=== PATIENT | male | born 1995 | race African-American/Black ===

== ENCOUNTER 2024-11-19 19:47 | Emergency (ER) | payer BC, SELFPAY ==
--- NOTE | ~2024-11-19 | US_ITS ---
EXAMINATION: US scrotum doppler DATE: 11/19/2024 21:15 INDICATION: Renal testicular pain, right greater than left TECHNIQUE: Testicular sonogram utilizing grayscale and Doppler COMPARISON: None. FINDINGS: The right testis measures 4.7 x 2.3 x 2.1 cm. The left testis measures 4.4 x 2.8 x 2.5 cm. Symmetric normal grayscale appearance to both testes. The right epididymis appears mildly enlarged and slightly hypoechoic relative to the left epididymis. There is also asymmetric increased vascular flow in the right epididymis when compared with the left consistent with epididymitis. There are several increase d vascular flow on the right testis relative to the left on color Doppler along the grayscale appeara nce appears normal and the collateral exclude a mild early right orchitis. There is no varicocele or hydrocele. There is also some edema or thickening and mild hyperemia of the right scrotal wall which likely reactive. The subcutaneous sutures at the lateral aspect right scrotum there is a 2.4 x 1.6 x 0.8 cm hypoechoic lesion with interval but with symmetric hyperechoic region with appearance suggesti ng possible fatty hilum of a reactive right inguinal lymph node. IMPRESSION: 1. Findings consistent with right sided epididymitis and early orchitis with likely reactive right i nguinal lymph node. Reviewed, dictated and finalized at location A. IMPRESSION: 1. Findings consistent with right sided epididymitis and early orchitis with l ikely reactive right inguinal lymph node.
[2024-11-19 19:52] VITALS: BP 134/82; PULSE 102; RESP 16; TEMP 36.7; O2SAT 99
[2024-11-19 19:54] VITALS: BP 135/87; PULSE 102; RESP 12; TEMP 36.6; O2SAT 98
--- NOTE | 2024-11-19 20:20 | ED_ITS ---
HPI - Male Genitourinary General Chief complaint: Urogenital-Male Stated complaint: R/O TESTICULAR TORSION; HIGH BS Time Seen by Provider: 11/19/24 20:07 History of Present Illness HPI Narrative: 29-year-old male with a past medical history including insulin-dependent diabetes presenting to the emergency room with right-sided testicular pain and swelling for last several days. He has noticed that he has had pain and swelling in that right side that is worsened over last few days and does have some associated dysuria without any discharge. Also states that he has had changing ejaculations recently and decreased output for last month. Notices the skin on the right side of his testicle is now indurated and hard to the touch. He went to [facility] where they transferred him to our hospital for ultrasound. He received morphine and route and was noted to be elevated blood sugars of 570 but states that he has not had insulin for last 2 days given the cost. No chest pain, shortness a breath, abdominal pain, fever, chills, nausea, vomiting. No present concerns for STI. Is uncircumcised and states that he thinks he might have gotten an infection of some sort. Related Data Allergies Allergy/AdvReac Type Severity Reaction Status Date / Time No Known Allergies Allergy Verified 11/19/24 22:50 Review of Systems 2 Review of Systems: As reviewed above in HPI Exam 2 Narrative: GENERAL: [Well-appearing, well-nourished, and in no acute distress.] HEAD: [Normocephalic, atraumatic.] EYES: [PERRLA and EOMI.] ENT: Nares clear, no rhinorrhea or epistaxis. Mucous membranes moist. NECK: Supple. CHEST: [Clear to auscultation. No respiratory distress.] HEART: [Regular rate and rhythm]. No murmur heard. [Normal peripheral pulses.] ABDOMEN: [Soft, nondistended], [nontender], [No rigidity or guarding] : Chaperoned examination reveals right-sided testicular and epididymal tenderness and swelling with scrotal induration on the lateral aspect of the right side, no inguinal lymphadenopathy or masses, no penile tenderness or discharge EXTREMITIES: Normal range of motion. [No edema.] SKIN: Warm, dry, no rash. NEURO: [No focal deficits]. Alert and oriented [x3.] PSYCH: [Normal mood and affect.] Course Vital Signs Vital signs: Vital Signs Temperature 36.7 C 11/19/24 19:52 Pulse Rate 102 H 11/19/24 19:52 Respiratory Rate 16 11/19/24 19:52 Blood Pressure 134/82 11/19/24 19:52 Pulse Oximetry 99 11/19/24 19:52 Oxygen Delivery Room Air 11/19/24 19:52 Temperature 36.7 C 11/19/24 22:31 Pulse Rate 97 11/19/24 22:57 Respiratory Rate 14 11/19/24 22:57 Blood Pressure 127/92 H 11/19/24 22:57 Pulse Oximetry 100 11/19/24 22:57 Oxygen Delivery Room Air 11/19/24 19:52 MDM - Male Genitourinary MDM Narrative Medical decision making narrative: 29-year-old male with a past medical history including insulin-dependent diabetes presenting to the emergency room with right-sided testicular pain and swelling for last several days. He has noticed that he has had pain and swelling in that right side that is worsened over last few days and does have some associated dysuria without any discharge. Also states that he has had changing ejaculations recently and decreased output for last month. Notices the skin on the right side of his testicle is now indurated and hard to the touch. He went to [facility] where they transferred him to our hospital for ultrasound. He received morphine and route and was noted to be elevated blood sugars of 570 but states that he has not had insulin for last 2 days given the cost. No chest pain, shortness a breath, abdominal pain, fever, chills, nausea, vomiting. No present concerns for STI. Is uncircumcised and states that he thinks he might have gotten an infection of some sort. Examination shows right-sided testicular and epididymal tenderness and swelling with scrotal induration on the lateral aspect of the right side, no inguinal lymphadenopathy or masses, no penile tenderness or discharge. Mildly tachycardic but no tachypnea, fever, hypoxia. Outside hospital labs were reviewed he does have a elevated white count but no signs of ketones or acidosis at that time but his blood sugars is 570 and he has not had insulin for several days. He also takes Jardiance and metformin at home. Has not been compliant with these. Differential includes testicular torsion although less likely given clinical exam findings and pain levels being controlled which raises suspicious for epididymal infection such as epididymitis, orchitis, abscess formation, scrotal cellulitis, inguinal hernia less likely, no right lower quadrant tenderness on exam a concern for intra-abdominal infection such as epididymitis is less likely. Ultrasound of the testicle and scrotum was ordered, CBC, CMP, VBG, ketones, urinalysis obtained. He was given a fluid bolus. Offered pain medications and patient politely declined at this juncture. Patient does have a leukocytosis of 20.7 likely infectious some pathology considering his symptoms. Platelets are normal, hemoglobin is 13.0. VBG shows no acidosis, electrolytes are unremarkable, normal creatinine, glucose 414 without any ketosis or anion gap. Negative beta hydroxybutyrate, negative lipase. Patient was given a dose of his home dose of insulin and came down to 321. Urinalysis shows glucose but no ketones, no nitrates or leukocyte esterase. Negative gonorrhea chlamydia, Trichomonas. Ultrasound finding shows epididymal orchitis with reactive right inguinal lymph node. No abscess formation. Patient re-evaluated and felt better after treatments so far. He was started on intramuscular route ceftriaxone and given a dose of Levaquin for coverage of his STI and enteric organisms. He will be sent home with 10 days of Levaquin. Encouraged to maintain his blood sugars at goal with his insulin at home and follow-up with his primary care provider and given Urology follow-up as needed. Patient given return precautions and safely discharged home at this time. Medical Records Attestation: I reviewed the patient's medical records. Lab Data Attestation: I reviewed the patient's lab results. 11/19/24 20:17 11/19/24 20:17 Labs: Lab Results 11/19/24 11/19/24 11/19/24 Range/Units 20:17 20:41 23:06 WBC 20.7 H (4.5-10.0) K/mm3 RBC 4.13 L (4.6-6.20) M/mm3 Hgb 13.0 L (14.0-18.0) g/dL Hct 37.4 L (42.0-52.0) % MCV 90.6 (80-100) fl MCH 31.5 (26-34) pg MCHC 34.8 (32-36) g/dl RDW 11.7 (11.5-14.5) % Plt Count 213 (150-375) k/mm3 MPV 10.3 (7.4-10.4) fl Immature Gran % (Auto) 0.5 (0-0.5) % Neut % (Auto) 76.4 H (45.5-73.1) % Lymph % (Auto) 14.9 L (18.3-44.2) % [place] % (Auto) 7.8 (2.6-8.5) % Eos % (Auto) 0.1 (0-4.4) % Baso % (Auto) 0.3 (0.2-1.2) % Lymph # (Auto) 3.08 (0.9-3.2) K/mm3 [place] # (Auto) 1.6 H (0.1-0.6) K/mm3 Eos # (Auto) 0.0 (0-0.3) K/mm3 Baso # (Auto) 0.1 (0.0-0.1) K/mm3 Abs Immat Gran (auto) 0.11 H (0.00-0.031) K/mm3 Absolute Neuts (auto) 15.8 H (1.3-6.7) K/mm3 Absolute Nucleated RBC 0.000 (0.0-0.012) K/mm3 Nucleated RBC % 0.0 (0.0-0.2) % Sodium 133 L (137-145) mmol/L Potassium 3.9 (3.4-5.0) mmol/L Chloride 101 (98-107) mmol/L Carbon Dioxide 25 (22-30) mmol/L Anion Gap 7 (4-12) mmol/L BUN 9 (9-20) mg/dL Creatinine 0.69 L (0.7-1.3) mg/dL Estim Creat Clear Calc Not Reportable Estimated GFR > 60 (59 - ) Glucose 414 H (65-110) mg/dL POC Capillary Glucose 321 H (65-105) mg/dl Calcium 8.6 (8.4-10.2) mg/dL Total Bilirubin 0.9 (0.2-1.3) mg/dL AST 20 (17-59) U/L ALT 16 (6-50) U/L Alkaline Phosphatase 70 (38-126) U/L Total Protein 7.2 (6.3-8.2) g/dL Albumin 3.9 (3.5-5.1) g/dL Lipase 107 (23-300) U/L Beta-Hydroxybutyrate/Acetoacetate 0.08 (0.02-0.27) mmol/L Urine Color Yellow (Yellow) Urine Appearance Clear (Clear) Urine pH 6.5 (5.0-9.0) Ur Specific [place] 1.040 H (1.001-1.035) Urine Protein Negative (Negative) mg/dL Urine Glucose (UA) 3+ H (Negative) mg/dL Urine Ketones Negative (Negative) mg/dL Ur Blood (Man) Negative (Negative) Urine Nitrate Negative (Negative) Urine Bilirubin Negative (Negative) Urine Urobilinogen 1.0 (<2.0) mg/dL Leukocyte Esterase Rfl Negative (Negative) LION/UL C. trachomatis (PCR) Not detected (NOT DETECTE) N. gonorrhoeae (PCR) Not detected (NOT DETECTE) T. vaginalis (PCR) Not detected (NOT DETECTE) ABG Data ABG results: 11/19/24 20:17 VBG pH 7.457 H* VBG pCO2 36.0 L VBG pO2 78.7 H VBG HCO3 24.9 O2 Delivery Device Room air O2 Liters/Min Not Reportable FiO2 21 Attestation: I personally reviewed and interpreted this ABG as follows: Interpretation: Respiratory alkalosis secondary to tachypnea, no acidosis. Imaging Data Attestation: I personally reviewed and interpreted this imaging study as follows: My impression: Impressions Scrotum Ultrasound 11/19/24 21:26 IMPRESSION: 1. Findings consistent with right sided epididymitis and early orchitis with likely reactive right inguinal lymph node. Discharge Plan Discharge Clinical Impression: Acute epididymo-orchitis, Hyperglycemia without ketosis Patient Disposition: Home Condition: Stable Instructions: Antibiotic Form, Epididymo-Orchitis (ED) Additional Instructions: Your ultrasound shows a infection of the testicle and epididymis which will be treated with 10 days of antibiotics. Your blood sugars being high will also contribute to healing the bacterial infection so we need to do to control your blood sugars at home with her insulin regimen. We will send you home with pain control medications and antibiotics for 10 days. Return with any emergent or worsening concerns, follow-up with regular doctor and we have provided you urologist to contact for outpatient follow-up as well. Patient Language: Tongan Prescriptions: New levofloxacin 500 mg tablet 500 mg PO DAILY 10 Days Qty: 10 0RF acetaminophen [Tylenol Extra Strength] 500 mg tablet 1,000 mg PO TID PRN (Reason: pain) Qty: 30 0RF ketorolac 10 mg tablet 10 mg PO Q8H PRN (Reason: pain) 5 Days Qty: 20 0RF Rx Instructions: maximum total duration of 5 days from all oral, intranasal, or parenteral formulations Follow-up/Referrals: Carlos Silver MD [Physician] - 1 Week (epididymo-orchitis) UNKNOWN,DOCTOR [Primary Care Provider] - Time of Disposition: 00:10
--- OUTSIDE RECORDS SUMMARY | 2024-11-19 20:20 | XMS_ITS | Data Portability ---
Author Organization [place] [facility], Main Office Address [address] [place] [address] Assessment No assessment recorded. Plan of Treatment Reminders Order Date Submit Date Provider Last Modified By Organization Details Last Modified Time Details Appointments None record ed. Lab None record ed. Referral None record ed. Procedures None record ed. Surgeries None record ed. Imaging None record ed. Medication Orders None record ed. Patient TargetsNo targets recorded. Patient InstructionsNo instructions recorded. Reason for Referral None Reported. Results Created Date Observation Date Name Description Value Unit Range Abnormal Flag Note LastModifiedBy Organization Detail LastModifiedTime Result Notes None recorded. Problems Name Problem SNOMED Code Status Onset Date Resolution Date Notes Provider Name and Address Organization Details Recorded Time Phimosis [id number] Active 022 Not Available [facility] 3 23:57:56 Problem Notes None recorded. Medical Equipment None Reported. Allergies No known drug allergies Medications Name Sig Start Date Stop Date Status Note LastModified by Organization Details LastModified Time metformin 500 mg tablet active Not Available Not Available Not Available azithromyci n 250 mg tablet 10/04 completed Not Available Not Available Not Available benzonatate 100 mg capsule active Not Available Not Available Not Available clotrimazol e-betametha sone 1 %-0.05 % topical cream APPLY TO THE AFFECTED AND SURROUNDI NG AREAS OF SKIN BY TOPICAL ROUTE 2 TIMES PER DAY IN THE MORNING AND EVENING FOR 2 WEEKS active Not Available Not Available No t Available metformin 2020 active Not Available Not Available Not Avai lable Vitals Date Recorded Body mass index (BMI) Body height Heart rate Body temperature Body weight Systolic And Diastolic Provider Name and Address Organization Details Last Updated DateTime 2 25.4 kg/m2 172.72 cm 78 /min 98.8 [degF] 27548.9 3 g 128/86 mm[Hg] Not Available [facility] 3 23:57:01 Date Recorded Body height Heart rate Body temperature Body mass index (BMI) Body weight Oxygen saturation Oxygen saturation in Arterial blood by Pulse oximetry Systolic And Diastolic Provider Name and Address Organization Details Last Updated DateTime 3 172.72 cm 78 /min 97.7 [degF] 20.5 kg/m2 59131.9 7 g 99 % 99 % 133/93 mm[Hg] ASIF Marino - S [facility] [employer] [facility] 3 16:36:57 Date Recorded Body mass index (BMI) Body height Oxygen saturation Oxygen saturation in Arterial blood by Pulse oximetry Heart rate Body temperature Body weight Systolic And Diastolic Provider Name and Address Organization Details Last Updated DateTime 1 25.4 kg/m2 172.72 cm 97 % 97 % 88 /min 98.6 [degF] 97217.9 3 g 133/93 mm[Hg] Not Available [facility] 3 23:57:01 Social History Question Answer Notes LastModified by Grandis Details LastModified Time Tobacco Smoking Status Never Smoker Not Available [facility] 07/06/2022 23:55:50 What Is Your Level Of Caffeine Consumption? None [id number] Information not available 07/06/2022 Has Tobacco Cessation Counseling Been Provided? No [id number] Information not available 07/06/2022 Sex: Unknown Functional Status Question Answer Note LastModified by Grandis Details LastModified Time Do you use any illicit or recreational drugs? No [id number] Information not available 07/06/2022 Do you or have you ever used any other forms of tobacco or nicotine? No [id number] Information not available 07/06/2022 What is your level of alcohol consumption? None [id number] Information not available 07/06/2022 Mental Status None recorded. Family History Relationship Description Onset Age of this Age Resolved Age Notes LastModified by Organization Details LastModified Time Unspecified Relation Diabetes mellitus [id number] Not available 07/06/2022 23:56:27 Medical History Condition Response BLINDNESS N CYSTITIS N RHEUMATIC FEVER N BLADDER PROBLEMS N KIDNEY STONES N Enlarged Prostate N MRSA N LUNG DISEASE/DISORDER N HISTORY OF DRUG ABUSE N COPD N RADIATION / CHEMOTHERAPY N BLOOD DISEASES N SHINGLES N BOWEL PROBLEMS N DEPRESSION (INCLUDING POST ) Y STROKE/TIA N THYROID DISEASE N BENIGN PROSTATIC HYPERPLASIA N OBESITY N GERD/NAUSEA N ANEURYSM N Increased Urination N URINARY/BLADDER/KIDNEY PROBLEMS N CORONARY ARTERY DISEASE (CAD) N USE OF BLOOD THINNERS N EMPHYSEMA N GASTROINTESTINAL DISORDER N GASTROINTESTINAL BLEEDING N BLOOD CLOTS N Difficulty Urinating N ASTHMA N CATARACTS N ERECTILE DYSFUNCTION N GI PROBLEMS N Low Testosterone N AIDS/HIV N LIVER DISEASE N MALE HYPOGONADISM N HYPERTENSION N TOURETTE'S N BLOOD TRANSFUSION N ANEMIA/BLOOD DISORDER N TUBERCULOSIS N GLAUCOMA N SLEEP APNEA N INFECTIOUS DISEASE N HEART ARRHYTHMIA N PROSTATE N INSOMNIA N HIGH CHOLESTEROL / HYPERLIPIDEMIA N HYPERTHYROIDISM N UTI N EDEMA N HYPOTHYROIDISM N BACK / NECK PROBLEMS N HAVE YOU BEEN HOSPITALIZED OR SEEN IN [facility] IN THE PAST YEAR ? N DIALYSIS N OSTEOPOROSIS N ARTHRITIS N NO SIGNIFICANT PAST MEDICAL HISTORY N DIABETES, TYPE N PARKINSON N HEPATITIS / LIVER DISEASE N GOUT N SLEEP DISORDER N ALZHEIMER'S DISEASE N HERPES N HEADACHES/MIGRAINES N SEIZURES/EPILEPSY N HEART MURMUR N PACEMAKER N DIZZINESS N HEART DISEASE/HEART PROBLEMS N KIDNEY DISEASE N MULTIPLE SCLEROSIS N CANCER: SPECIFY N ANESTHESIA COMPLICATIONS N ATRIAL FIBRILLATION N AUTOIMMUNE DISEASE N Past Encounters Encounter ID Performer Location Encounter Start Date Encounter Closed Date Diagnosis/Indication Diagnosis SNOMED-CT Code Diagnosis ICD10 Code Diagnosis Note [id number] MD ABDIFATAH Ruiz [address] [address] 01/29/2021 00:00:00 01/29/2021 15:26:31 [id number] MD ABDIFATAH Ruiz [address] [address] 07/09/2021 00:00:00 07/09/2021 15:59:20 [id number] MD ABDIFATAH Britt [address] [address] 10/04/2022 16:07:37 10/04/2022 17:13:09 Phimosis 472273007 N47.1 Discussed options, he wants to go with circumcisi on, went over risks of bleeding, infection, change in sensation of penis, he wants it done under anesthesia . Health Concerns Section Related Observation LastModified by Organization Detai ls LastModified Time None Recorded Concern Status LastModified by Organization Details LastModified Time None Recorded Advance Directives Directive None Recorded Payers Insurance Date Sequence Insurance Name Policy Number Policy Yip Covered Member ID Yip Member ID Guarantor Name 10/22/2022 1 [facility] (MEDICAID HMO) [id number] Emerson Enoc [id number] Emerson Stubbs Notes Date Note Type Note Provider Name and Address Organization Details Recorded Time 10/04/2022 text/html Pt presents for fu of phimosis, tried and failed steriod cream, was set for circ last year but went out of town. No voiding complaints, no trouble with erections. John Dumont MD [address] [place] [address], [place], [address], [facility] 10/04/2022 17:36:21
--- OUTSIDE RECORDS SUMMARY | 2024-11-19 20:20 | XMS_ITS | Clinical Summary ---
Author Organization [facility] Address [address] [place] [address] Phone Care Team Providers Care Gis Mapping Technician Name Role Phone Sam Steven APRN, CNP Primary Care Pr ovider Allergies No known active allergies Medications Blood Glucose Monitoring Suppl DeviceIndicatio ns:Type 2 diabetes mellitus with hyperglycemia, without long-term current use of insulin (HCC) Diagnosis: Diabetes type 2 Blood testing frequency: twice a day 1 Each 3 Active Lancets MiscIndications :Type 2 diabetes mellitus with hyperglycemia, without long-term current use of insulin ([facility]) Use to check blood sugar twice daily as directed. E11.65. 100 Lancet 11 3 Active Alcohol Swabs (Alcohol Prep Pads) 70 % PadsIndications :Type 2 diabetes mellitus with hyperglycemia, without long-term current use of insulin ([facility]) Use to test blood glucose twice daily as directed. E11.65. 100 Each 3 Active metFORMIN (GLUCOPHAGE) 1000 MG TabletIndicatio ns:Type 2 diabetes mellitus with hyperglycemia, with long-term current use of insulin (HCC) Take 1 Tablet by mouth 2 times daily (with meals). 180 Tablet 1 5 Active insulin glargine (LANTUS, BASAGLAR) 100 UNIT/ML Solution Pen-injectorInd ications:Type 2 diabetes mellitus with hyperglycemia, with long-term current use of insulin (HCC) 15 Units by Subcutaneous route every evening. 15 mL 1 5 Active Glucose Blood StripIndication s:Type 2 diabetes mellitus with hyperglycemia, with long-term current use of insulin (HCC) Use to check blood sugar QID as directed. E11.65. 200 Strip 11 5 Active HumaLOG KwikPen 100 UNIT/ML Solution Pen-injectorInd ications:Type 2 diabetes mellitus with hyperglycemia, with long-term current use of insulin (HCC) 5 Units by Subcutaneous route 3 times daily (after meals). 6 mL 1 5 Active Insulin Pen Needle (B-D UF III MINI PEN NEEDLES) 31G X 5 MM MiscIndications :Type 2 diabetes mellitus with hyperglycemia, with long-term current use of insulin (HCC) Use with insulin pen as directed. QID. 100 Pen Needle 1 5 Active Active Problems Problem Noted Date Diagnosed Date Type 2 diabetes mellitus wit h hyperglycemia, without long-term current use of insulin 01/17/2023 Tobacco abuse 01/17/2023 Cataract 01/17/2023 Encounters Date Type Department Care Team Description 09/24/2024 4:30 PM CDT Office Visit [facility] [address] [place] [address] Sam Steven APRN, CNP Type 2 diabetes mellitus with hyperglycemia, with long-term current use of insulin (HCC) (Primary Dx) Discharge Disposition: Discharged to home or Selfcare 09/24/2024 Travel 09/24/2024 Telephone [facility] [address] [place] [address] Sam Steven APRN, CNP Appointment 09/23/2024 Documentation Only [facility] [address] [place] [address] Sam Steven APRN, CNP from Last 3 Months Immunizations Immunization Administration Dates Next Due Hepatitis A Vaccine 02/12/2015 Family History Medical History Relation Name Comments Lupus Father Diabetes Mother Relation Name Status Comments Father Alive Mother Alive Social History Tobacco Use Types Packs/Day Years Used Date Smoking Tobacco: Every Day Cigarettes 0.2 1.5 Passive Smoke Exposure: Current Smokeless Tobacco: Never Tobacco Cessation:Ready to Q uit: No; Counseling Given: Yes Alcohol Use Standard Drinks/Week Comments Yes 0 (1 standard drink = 0.6 oz pur e alcohol) Rarely PHQ-2 Answer Date Recorded Total Score - Questions 1-9 0 05/10 Sexually Active Control Partners Comments Yes Male Condom Female Sex and Gender Information Value Date Recorded Sex Assigned at Not on file Legal Sex Male 8:39 AM CDT Gender Identity Not on file Sexual Orientation Not on file Last Filed Vital Signs Vital Sign Reading Time Taken Comments Blood Pressure 118/74 09/24/2024 4:21 PM CDT Pulse 106 09/24/2024 4:21 PM CDT Temperature 36.3 C (97.4 F) 09/24/2024 4:21 PM CDT Respiratory Rate 16 09/24/2024 4:21 PM CDT Oxygen Saturation 97% 09/24/2024 4:21 PM CDT Inhaled Oxygen Concentration - - Weight 64.7 kg (142 lb 9.6 oz) 09/24/2024 4:21 P M CDT Height 172.7 cm (5' 8) 09/24/2024 4:21 PM CDT Body Mass Index 21.68 09/24/2024 4:21 PM CDT Plan of Treatment Upcoming Encounters Date Type Department Care Team (Late st Contact Info) Description 12/05/2024 2:45 PM CDT Office Visit [facility] - Endocrinology [facility] [address] [place] [id number] Sam Steven, BETSY, ECONOMICS TEACHER [address] [address] Fermín Bello MD [address] [address] 12/25/2024 4:30 PM CDT Office Visit [facility] - Family Medicine [facility] [address] [place] [address] Sam Steven APRN, ECONOMICS TEACHER #[address] [address] Health Maintenance Due Date Last Done Comments Diabetes: Foot Exam 1995 TdaP Immunization 1995 Human Papillomavirus (HPV) Immunization (1 - Male 3-dose series) 2010 Diabetes: Nephropathy Screening 2013 Hepatitis B Immunization (1 of 3 - 19+ 3-dose series) 2014 SARS-COV-2 Immunization ( - season) 2024 Influenza Immunization (#1) 2025 Diabetes: Hemoglobin A1c 03/27/2025 025, 01/17/2023 Pneumococcal Immunization Combined (1 of 2 - PCV) 06/07/2025 Postponed from 0 2014 (Patient Temporarily Declines) Diabetes: Eye Exam 07/11/2025 07/11/2024 Respiratory Syncytial Virus (RSV) Immunization (Adult) (1 - 1-dose 75+ series) 2070 Hepatitis C Virus (HCV) Screening Discontinued Meningococcal Immunization (ACWY) Aged Out No longer eligible b ased on patient's age to complete this topic Rotavirus Immunization Aged Out No lo nger eligible based on patient's age to complete this topic Procedures Procedure Name Priority Date/Time Associated Diagnosis Comments POCT GLYCOSYLATED HEMOGLOBIN Routine 09/24/2024 4:28 PM CDT Type 2 diabetes mellitus with hyperglycemia, with long-term current use of insulin (HCC) DILATED EYE EXAM 07/11/2024 1 2:00 AM ADVERTISING PRODUCTION MANAGER from Last 3 Months or Most Recently Relevant to Health Maintenance Results * (ABNORMAL) POCT GLYCOSYLATED HEMOGLOBIN (09/24/2024 4:28 PM CDT) HGB-A1C 14.8(A) 4 - 6 % Blood 09/24/2024 4:28 PM CDT Sam Steven APRN, ECONOMICS TEACHER POINT OF CARE TE STING (MANUAL) Final Result * DILATED EYE EXAM (07/11/2024 12:00 AM ADVERTISING PRODUCTION MANAGER) 07/11/2024 us Provider Scan PROCEDURE/MINOR SURGICAL ORDERAB LES Final Result SCAN from Last 3 Months or Most Recently Relevant to Health Maintenance Insurance [facility] Care Teams Gis Mapping Technician Relationship Specialty Start Date End Date Sam Steven APRN, ECONOMICS TEACHER #[address] [address] PCP - General Advanced Practice Nurse 01/17/23
--- OUTSIDE RECORDS SUMMARY | 2024-11-19 20:20 | XMS_ITS | Clinical Summary ---
Author Organization [address] Address [address] [place] [id number] Care Team Providers Care Office Mail Clerk Name Role Phone No, Physician Primary Care Provider [phone] Allergies No known active allergies Medications metFORMIN (GLUCOPHAGE) 500 mg tablet Take 1 tablet (500 mg total) by mouth 2 (two) times a day with meals 60 tablet 2 10/25/2022 Active Social History Tobacco Use Types Packs/Day Years Used Date Smoking Tobacco: Never Assessed Personal Safety Answer Date Recorded Have you ever been in or are you currently in a harmful physical or emotional relationship or is someone making you feel afraid or unsafe? 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 Gender Identity Not on file Sexual Orientation Not on file Obstetrics History Last Filed Vital Signs Vital Sign Reading Time Taken Comments Blood Pressure 129/92 10/25/2022 7:30 PM CDT Pulse 67 10/25/2022 7:30 PM CDT Temperature 36.7 C (98 F) 10/25/2022 12:24 PM CDT Respiratory Rate 16 10/25/2022 7:30 PM CDT Oxygen Saturation 99% 10/25/2022 7:30 PM CDT Inhaled Oxygen Concentration - - Weight 59 kg (130 lb) 10/25/2022 12:24 PM CDT Height 172.7 cm (5' 8) 10/25/2022 12:24 PM CDT Body Mass Index 19.77 10/25/2022 12:24 PM CDT Plan of Treatment Health Maintenance Due Date Last Done Comments Depression Screening 1995 Hepatitis C Screening 1995 DTaP/Tdap/Td Vaccine (1 - Tdap) 2006 Varicella Vaccines (1 of 2 - 13+ 2-dose series) 01/23/2008 Hepatitis B Screening 2013 Regular Well Visit/Exam 18-64 2013 Influenza Vaccine (#1) 2025 HPV Vaccines Aged Out No longer eligi ble based on patient's age to complete this topic Pneumococcal vaccine <65 Aged Out No longer eligible based on patient's age to complete this topic Insurance [facility] Care Teams Office Mail Clerk Relationship Specialty Start Date End Date No, Physician PCP - General 10/25/22
--- OUTSIDE RECORDS SUMMARY | 2024-11-19 20:20 | XMS_ITS | Referral Summary ---
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
--- OUTSIDE RECORDS SUMMARY | 2024-11-19 20:20 | XMS_ITS | Clinical Summary ---
Author Organization [facility] Address [address] [place] [id number] Care Team Providers Care Supervisor Bonding Name Role Phone Unavailable Primary Care Provider Unavailabl e Social History Tobacco Use Types Packs/Day Years Used Date Smoking Tobacco: Never Assessed Sex and Gender Information Value Date Recorded Sex Assigned at Not on file Legal Sex Male 6:53 PM CDT Gender Identity Not on file Sexual Orientation Not on file Plan of Treatment Health Maintenance Due Date Last Done Comments Annual Physical 1998 Hepatitis C 2013 DTaP, Tdap and Td Vaccines ( 1 - Tdap) 2014 Hepatitis B Vaccines (1 of 3 - 19+ 3-dose series) 2014 COVID-19 Vaccine (2023-2 5 season) 2024 HPV Vaccines Aged Out No longer eligi ble based on patient's age to complete this topic Meningococcal B Vaccine Aged Out No l onger eligible based on patient's age to complete this topic Meningococcal Vaccine Aged Out No megan sheila eligible based on patient's age to complete this topic Pneumococcal Vaccine: Pediat rics (0 to 5 Years) and At-Risk Patients (6 to 49 Years) Aged Out No longer eligible b ased on patient's age to complete this topic RSV Immunizations Under 20 Months Aged Out No longer eligible based on patient's age to complete this topic
[2024-11-19] MEDS: LACTATED RINGERS 1,000 ML 999 ML IV CONT (20:21)
[2024-11-19 20:26] LABS: Hematocrit 37.4 % (42.0-52.0); Hemoglobin 13.0 g/dL (14.0-18.0); Immature Granulocyte Percent A 0.5 % (0-0.5); Lymphocytes Absolute Auto 3.08 K/mm3 (0.9-3.2); Mean Corpuscular HGB Conc 34.8 g/dl (32-36); Mean Corpuscular Hemoglobin 31.5 pg (26-34); Mean Corpuscular Volume 90.6 fl (80-100); Nucleated Red Blood Cells Absolute Auto 0.000 K/mm3 (0.0-0.012); Nucleated Red Blood Cells Perc 0.0 % (0.0-0.2); Platelet Count Result 213 k/mm3 (150-375); Red Blood Count 4.13 M/mm3 (4.6-6.20); White Blood Count 20.7 K/mm3 (4.5-10.0)
[2024-11-19 20:31] LABS: Fractional Inspired Oxygen 21 %; HCO3 VBG 24.9 mEq/l (24.0-30.0); PCO2 VBG 36.0 mmHg (42.0-48.0); PO2 VBG 78.7 mmHg (35.0-45.0)
[2024-11-19 20:32] LABS: pH VBG 7.457 (7.300-7.400)
[2024-11-19 20:44] LABS: Beta-Hydroxybutyrate/Acetoacetate 0.08 mmol/L (0.02-0.27)
[2024-11-19 20:47] LABS: Add Urine Microscopic? NO; Appearance Urine Clear (Clear); Glucose Urine UA 3+ mg/dL (Negative); Leukocyte Esterase Ur Negative LEU/UL (Negative); Nitrate Urine Negative (Negative); Specific Grav Ur 1.040 (1.001-1.035)
[2024-11-19 20:54] LABS: Alanine Aminotransferase 16 U/L (6-50); Albumin Level 3.9 g/dL (3.5-5.1); Alkaline Phosphatase 70 U/L (38-126); Anion Gap 7 mmol/L (4-12); Aspartate Amino Transferase 20 U/L (17-59); Bilirubin,Total 0.9 mg/dL (0.2-1.3); Blood Urea Nitrogen 9 mg/dL (9-20); Calcium 8.6 mg/dL (8.4-10.2); Carbon Dioxide 25 mmol/L (22-30); Chloride 101 mmol/L (98-107); Estimated Glomerular Filt Rate > 60; Glucose 414 mg/dL (65-110); Lipase 107 U/L (23-300); Potassium 3.9 mmol/L (3.4-5.0); Sodium 133 mmol/L (137-145); Total Protein 7.2 g/dL (6.3-8.2)
[2024-11-19 21:46] VITALS: BP 129/80; PULSE 91; RESP 11; O2SAT 100
[2024-11-19 21:52] LABS: Trichomonas Vag PCR NOT DETECTED (NOT DETECTE)
[2024-11-19 22:31] VITALS: BP 125/90; PULSE 90; RESP 14; TEMP 36.7; O2SAT 98
[2024-11-19] MEDS: levoFLOXacin 500 MG/D5W 100 ML 500 MG/100 ML BAG 100 MG IVPB (22:52)
[2024-11-19] MEDS: cefTRIAXone 1 GM VIAL 0.5 GM IM (22:54)
[2024-11-19 22:57] VITALS: BP 127/92; PULSE 97; RESP 14; O2SAT 100
[2024-11-19] MEDS: INSULIN ASPART (*BKC) 100 UNITS/ML 10 UNITS SUB-Q (23:07)
--- NOTE | 2024-11-19 23:17 | PC.NURSE ---
Assumed care. Report given by Gely FELICIANO.
[2024-11-20 00:43] VITALS: BP 125/72; PULSE 92; RESP 18; TEMP 36.4; O2SAT 99
== END 2024-11-20 00:26 | disposition home or self-care (01) ==
PROVIDERS: Emergency Provider Student in an Organized Health Care Education/Training Program
DX: N45.3 Epididymo-orchitis (principal); E11.65 Type 2 diabetes mellitus with hyperglycemia; Z79.4 Long term (current) use of insulin; T38.3X6A Underdosing of insulin and oral hypoglycemic [antidiabetic] drugs, initial encounter; Z91.141 Patient's other noncompliance with medication regimen due to financial hardship; Z79.84 Long term (current) use of oral hypoglycemic drugs
CPT/HCPCS: 36415; 76870; 80053; 81003; 82010; 82803; 82948; 83690; 85025; 87491; 87591; 87661; 93976; 96361; 96365; 96372; 99284; J0696; J1815; J1956; J7120